=== PATIENT | female | born 1945 | race Caucasian/White ===

== ENCOUNTER → 2017-05-04 | Outpatient (CLI) | payer OTHER ==
[~2017-05-04] MED LIST: ASPIRIN81 M2 PO; CIPRO250 MG PO; FLOMAX0.4 MG PO; LEXAPRO10 MG PO; LIPITOR10 MG PO; PERCOCET 5/31 TABLET PO; PREVACID30 MG PO; ZIAC 5/6.251 TABLET PO; ZOFRAN4 MG PO
== END | disposition home or self-care (01) ==
LOC: AMB 10:30
PROC: 0HBLXZZ Excision of Left Lower Leg Skin, External Approach (ICD-10-PCS; principal; 2017-05-04)
PROC: 0JQP0ZZ Repair Left Lower Leg Subcutaneous Tissue and Fascia, Open Approach (ICD-10-PCS; principal; 2017-05-04)
DX: I83.892 Varicose veins of left lower extremity with other complications (principal); L98.8 Other specified disorders of the skin and subcutaneous tissue

== ENCOUNTER 2018-02-24 23:32 | Emergency (ER) | payer OTHER ==
[~2018-02-24] VITALS: Ht 160 cm; Wt 123.8 kg
[2018-02-25 00:29] LABS: HEMATOCRIT 40.5 % (36.0-46.0); HEMOGLOBIN 13.7 G/DL (11.9-15.5); MCH 31.2 PG (29.0-34.0); MCHC 33.8 G/DL (30.0-36.0); MCV 92.3 FL (83-99); PLATELET COUNT 214 K/uL (156-360); RBC DIS.WIDTH-CV 12.8 % (11.8-14.6); RBC DIS.WIDTH-SD 43.5 % (39-53); RED BLOOD COUNT 4.39 M/uL (3.80-5.20); WHITE BLOOD COUNT 8.1 K/uL (4.1-10.2)
[2018-02-25 00:43] LABS: ALBUMIN 3.9 g/dL (3.2-4.8)
[2018-02-25 00:44] LABS: CHLORIDE 108 mEq/L (99-109); POTASSIUM 3.5 mEq/L (3.7-5.4); SODIUM 141 mEq/L (136-147)
[2018-02-25 00:46] LABS: GLUCOSE 127 mg/dL (70-99); TOTAL PROTEIN 6.8 g/dL (6.4-8.3)
[2018-02-25 00:48] LABS: TOTAL BILIRUBIN 0.4 mg/dL (0.0-1.0)
[2018-02-25 00:49] LABS: ALKALINE PHOSPHATASE 65 IU/L (3-129)
[2018-02-25 00:50] LABS: CREATININE 0.8 mg/dL (0.6-1.3); GFR ESTIMATE (CALCULATED) > 59 mL/min/
[2018-02-25 00:51] LABS: AST (GOT) 18 IU/L (2-34); UREA NITROGEN (BUN) 17 mg/dL (9-23)
[2018-02-25 00:53] LABS: ALT (GPT) 19 IU/L (3-49)
[2018-02-25 02:47] VITALS: BP 158/87
== END 2018-02-25 02:48 | disposition home or self-care (01) ==
LOC: EME 23:32
PROVIDERS: Nurse Practitioner Family
DX: R07.0 Pain in throat (principal); R13.10 Dysphagia, unspecified; I10 Essential (primary) hypertension; K21.9 Gastro-esophageal reflux disease without esophagitis; F32.9 Major depressive disorder, single episode, unspecified; Z87.442 Personal history of urinary calculi
CPT/HCPCS: 70360; 71046; 80053; 85027; 99281; 99284

== ENCOUNTER → 2018-04-01 | Outpatient (CLI) | payer OTHER ==
[~2018-04-01] VITALS: Ht 157.5 cm; Wt 117.9 kg
[~2018-04-01] MED LIST changes: +DEXILANT60 MG PO; +NON-ASPIRIN PA325 MG PO
== END | disposition home or self-care (01) ==
LOC: AMB 10:28
DX: Z12.11 Encounter for screening for malignant neoplasm of colon (principal); D12.2 Benign neoplasm of ascending colon; Z80.0 Family history of malignant neoplasm of digestive organs; K64.4 Residual hemorrhoidal skin tags; K64.2 Third degree hemorrhoids; K57.30 Diverticulosis of large intestine without perforation or abscess without bleeding; R13.10 Dysphagia, unspecified; K44.9 Diaphragmatic hernia without obstruction or gangrene; K29.60 Other gastritis without bleeding; I10 Essential (primary) hypertension; E78.5 Hyperlipidemia, unspecified
CPT/HCPCS: 88305; 93005